=== PATIENT | female | born 1945 | race Caucasian/White ===

== ENCOUNTER 2017-07-09 07:57 | Day surgery (SDC) | payer MEDICARE, OTHER ==
[~2017-07-09] VITALS: Ht 154.9 cm; Wt 88.2 kg
[~2017-07-09 07:57] MED LIST: COZA50TA PO; DEXA4TAB PO; DRIS8000 PO; LORA10TA PO; LORTA5 PO; METO25 PO; POLY119S PO; TYLE500T PO; ZOFR8TAB4 PO
[2017-07-09] MEDS ORDERED: LOSA50TA PO (08:20)
[2017-07-09] MEDS ORDERED: METO1TAB42 PO (08:20)
[2017-07-09 08:30] VITALS: BP 216/104; PULSE 69; RESP 20; TEMP 97.9; O2SAT 99
[2017-07-09] MEDS ORDERED: SODIUM CHLORIDE 0.9% 1000 ML IV SCH (08:45)
[2017-07-09] MEDS ORDERED: ceFAZolin 2 GM PREMIX 50 ML - implanted port/tunneled catheter insertion IV SCH (08:45)
[2017-07-09] MEDS ORDERED: DIAZEPAM 5 MG TAB PO PRN (09:00)
[2017-07-09 10:00] VITALS: BP 144/80; PULSE 62; RESP 20; O2SAT 99
[2017-07-09] MEDS ORDERED: SODIUM BICARBONATE 8.4% INJ 50 ML ONE (11:51)
--- NOTE | 2017-07-09 12:23 | PD.RAD ---
Post Procedure Progress Note Pre Procedure Diagnosis: (1) Ovarian cancer Post Procedure Diagnosis: (1) Ovarian cancer Procedure Date: Jul 09, 2017 Supervising Radiologist: Hernesto Singer Estimated blood loss: 3cc Anesthesia: Local Plan of Activity Patient to Unit: ROPU Patient Condition: Good Additional Comments: Port removed from the right chest without difficulty. Full dictated report to follow. See PACS Report for procedural detail/treatment Hernesto Singer MD Jul 09, 2017 12:23
[2017-07-09 12:25] VITALS: BP 185/91; PULSE 52; RESP 18; O2SAT 99
--- NOTE | 2017-07-09 16:14 | RADRPT ---
EXAM DATE/TIME: 07/09/2017 00:00 [facility] COMPARISON: [id number] PLCMT, POWERPORT, W US, RIGHT, August 07, 2014, 8:15. INDICATIONS : Patient with history of ovarian cancer in need of Hzqxy-o-Eret removal. MEDICAL HISTORY : Stage III ovarian cancer, Chemotherapy, Diverticulitis, Heart murmur, HTN, Mastalgia, Thyroid disease SURGICAL HISTORY : Colonoscopy, Omenectomy, Port placement ENCOUNTER: Subsequent ACUITY: > 1 year PAIN SCORE: 0/10 Prophylactic antibiotics were administered with appropriate pre-procedure timing. Vancomycin within 2 hrs of procedure, Ancef (or alternative) within 1 hr of procedure. PROCEDURE : 1. Removal of Rlojwi-o-mckk. 2. Conscious sedation with continuous EKG and oximetry monitoring. The risk, benefits and potential complications of Izroew-r-Rrws removal were discussed. Written conse nt was obtained. The patient was placed supine. The chest wall was prepped in sterile fashion. Full sterile techniqu e was used, including cap, mask, sterile gloves and gown, and a large sterile sheet. Hand hygiene an d 2% chlorhexidine and/or Betadine/alcohol prep was utilized per protocol for cutaneous antisepsis. The skin and subcutaneous tissues were infiltrated with local anesthetic solution. A small incision w as made, the subcutaneous pocket was opened. The port was dissected from the subcutaneous tissues and easily removed in one piece. The pocket incision was closed with subcuticular Vicryl suture. Steri -Strips were applied. The procedure was performed in the presence of an independent trained radiology nurse to assist in th e monitoring of the patient. EKG and oximetry remained stable throughout the procedure. The patient tolerated the procedure well and there were no complications. The patient was sent to post anesthesi a recovery in stable condition. CONCLUSION: Uncomplicated port removal as above. Hernesto Singer MD on July 09, 2017 at 16:07 Board Certified Radiologist. This report was verified electronically.
== END 2017-07-09 13:12 | disposition home or self-care (01) ==
LOC: HROP 07:57 → HRIP 08:01 → HROP 13:12
PROVIDERS: ATTEND Nurse Practitioner Family
DX: Z45.2 Encounter for adjustment and management of vascular access device (principal); C56.9 Malignant neoplasm of unspecified ovary; I10 Essential (primary) hypertension; E07.9 Disorder of thyroid, unspecified
CPT/HCPCS: 36590; J7030